=== PATIENT | female | born 1985 | race Caucasian/White ===

== ENCOUNTER → 2023-05-23 18:51 | Outpatient (CLI) | payer OTHER, MEDICAID, SELFPAY | PROVIDERS: Visit Provider Physician Assistant | DX: R30.0 Dysuria (principal) | CPT/HCPCS: 81002 ==

== ENCOUNTER → 2023-11-17 15:46 | Outpatient (CLI) | payer OTHER, MEDICAID, SELFPAY ==
--- NOTE | 2023-11-17 15:49 | DI.US.S_ITS ---
PROCEDURE: US OB <= 14 WEEKS FETUS INDICATIONS: DATES OUTSIDE/PRIOR DATING DATA: Last menstrual period (LMP): 08/23/23. LMP-based estimated date of delivery (MANUEL): 05/29/24 First dating scan (date and location): 11/17/23 Estimated date of delivery (MANUEL) from first dating scan: 05/23/24. TECHNIQUE: Real-time scanning was performed of the fetus and maternal pelvic organs, with image documentation. COMPARISON: None. FINDINGS: Single living intrauterine . heart rate 162 beats per minute Amniotic fluid volume subjectively normal Early placental formation is anterior and low, however the maternal urinary bladder is quite full. Biparietal diameter 2.1 cm, 13 weeks two days Head circumference 8.0 cm, 13 weeks three days Abdominal circumference 6.3 cm, 13 weeks 0 days Femur length is 0.9 cm, 12 weeks six days Composite gestational age 13 weeks one day Clinical gestational age 12 weeks two days Maternal organs: Ovaries are not well seen. The cervix is closed measuring about 3.9 cm in length. No perigestational hemorrhage. No free fluid in the pelvis. IMPRESSION: Single living intrauterine with a gestational age by today's exam of 13 weeks one day, six days ahead of the clinical gestational age. Low appearing anteriorly developing placenta, likely accentuated due to full maternal bladder. Attention on follow-up recommended. We strive to produce accurate, complete, and clear reports of imaging services. To assist us in improving patient care, this report was composed using standard report templates and voice recognition software. Therefore, it may contain abnormal punctuation, insertions and/or omissions. Occasional wrong-word or sound-alike substitutions may occur. Though we review the report and make efforts to correct it, we do recommend that the report be read carefully in proper context to recognize any text inaccuracies. Dictated by: Razia Johnson M.D. on 11/17/2023 at 17:15 Approved by: Razia Johnson M.D. on 11/17/2023 at 17:21
== END ==
LOC: US 15:47
PROVIDERS: Family Provider Family Medicine; PCP Student in an Organized Health Care Education/Training Program; Referring Provider Family Medicine; Visit Provider Family Medicine
DX: Z34.81 Encounter for supervision of other normal pregnancy, first trimester (principal); Z3A.13 13 weeks gestation of pregnancy
CPT/HCPCS: 76801

== ENCOUNTER → 2023-12-02 11:19 | Outpatient (CLI) | payer OTHER, MEDICAID, SELFPAY ==
[2023-12-02 12:10] LABS: Add Manual Diff / Slide Review NO; Basophils Absolute Auto 0 /uL (0-100); Basophils Percent Auto 0.7 % (0-2); Eosinophils Absolute Auto 200 /uL (0-450); Eosinophils Percent Auto 2.8 % (2-4); Hematocrit 37.5 % (36-46); Hemoglobin 12.9 g/dL (12.0-16.0); Lymphocytes Absolute Auto 1100 /uL (1100-4500); Lymphocytes Percent Auto 15.9 % (25-40); Mean Corpuscular HGB Conc 34.4 % (30-36); Mean Corpuscular Hemoglobin 31.1 PG (26-34); Mean Corpuscular Volume 90.4 fL (80-100); Monocytes Absolute Auto 300 /uL (0-900); Monocytes Percent Auto 4.2 % (3-14); Neutrophils Absolute Auto 5200 /uL (1500-7000); Neutrophils Percent Auto 76.4 % (50-75); Platelet Count 184 X10^3/uL (150-400); Red Blood Cell Count 4.15 X10^6/uL (4.0-5.2); Red Cell Distribution Width 12.8 % (11.6-14.8); White Blood Cell Count 6.9 X10^3/uL (4.5-11.0)
[2023-12-02 12:56] LABS: Appearance Urine UA CLEAR; Bilirubin Urine UA NEGATIVE (NEGATIVE); Color Urine UA YELLOW; Glucose Urine UA NEGATIVE (Negative); Ketones Urine UA TRACE (NEGATIVE); Leukocyte Esterase Urine UA TRACE (NEGATIVE); Nitrite Urine UA NEGATIVE (Negative); Occult Blood Urine UA NEGATIVE (Negative); Protein Urine UA NEGATIVE (Negative)
[2023-12-02 13:39] LABS: HIV 1 & 2 Ab/Ag 4th Gen Combo NEGATIVE (NEGATIVE); Hep C Virus Ab w/Reflex Quant NEGATIVE s/c (NEGATIVE); Hepatitis B Surface Antigen NEGATIVE s/c (NEGATIVE); Rubella Antibody IgG 18.3 IU/mL (>15)
[2023-12-02 13:47] LABS: Bacteria Urine Moderate (10-30); RBC Urine 0-1/HPF (0-5/HPF); Squamous Epithelial Cell Urine 1-5 /HPF (0-5/HPF); Urine Volume 10mL (spun); WBC Urine 1-5/HPF (0-5/HPF)
[2023-12-02 14:17] LABS: Urine N gonorrhoeae NOT DETECTED
[2023-12-02 14:18] LABS: Urine Chlamydia NOT DETECTED
[2023-12-03 09:21] LABS: RPR Screen Non Reactive (Non Reactive)
[2023-12-03 12:37] LABS: Varicella IgG Antibody 471 index (Immune >165)
== END ==
LOC: LAB 11:20
PROVIDERS: Family Provider Family Medicine; Referring Provider Family Medicine; Visit Provider Family Medicine
DX: Z34.01 Encounter for supervision of normal first pregnancy, first trimester (principal)
CPT/HCPCS: 36415; 80055; 81003; 81015; 86787; 86803; 86850; 86900; 86901; 87086; 87389; 87491; 87591

== ENCOUNTER → 2023-12-10 11:17 | Outpatient (CLI) | payer OTHER, MEDICAID, SELFPAY ==
[2023-12-10 13:04] LABS: Natera Collection Specimen Collected
== END ==
PROVIDERS: Family Provider Family Medicine; Referring Provider Family Medicine; Visit Provider Family Medicine
DX: O99.342 Other mental disorders complicating pregnancy, second trimester (principal)
CPT/HCPCS: 36415